=== PATIENT | male | born 1965 | race Two or more races ===

== ENCOUNTER 2024-05-17 15:44 | Emergency (ER) | payer BC, OTHER ==
[~2024-05-17] VITALS: Ht 167.6 cm; Wt 67.8 kg
[2024-05-17] MEDS: IOHEXOL 300 MG/ML 100ML BOTTLE IJ ONE (16:39)
[2024-05-17 17:13] LABS: Basophils # (auto) 0 10 ^3/uL (0-0.2); Basophils % (auto) 0.3 % (0.0-2.0); Eosinophils # (auto) 0.1 10 ^3/uL (0-0.8); Eosinophils % (auto) 1.1 % (0.0-7.0); Hematocrit 40.6 % (41.0-53.0); Hemoglobin 13.8 g/dL (13.5-17.5); Lymphocytes # (auto) 1.2 10 ^3/uL (0.4-5.4); Lymphocytes % (auto) 22.7 % (10.0-50.0); Mean Corpuscular Hemoglobin 30.6 pg (28.0-32.0); Monocytes # (auto) 0.3 10 ^3/uL (0-1.3); Neutrophils # (auto) 3.8 10 ^3/uL (1.6-8.6); Neutrophils % (auto) 69.9 % (37.0-80.0); Nucleated Red Blood Cells % 0.1 %; Red Blood Cells 4.51 10^6/uL (4.5-5.90); Red Cell Distribution Width 13.1 % (11.8-14.3); White Blood Cell 5.4 10^3/uL (4.4-10.8)
[2024-05-17 17:28] LABS: Alanine Aminotransferase 24 U/L (7-40); Albumin 3.9 g/dL (3.2-4.8); Alkaline Phosphatase 83 U/L (46-116); Anion Gap 6 (5-15); Aspartate Aminotransferase 8 U/L (13-40); BUN/Creatinine Ratio 16.3 (10.0-20.0); Bilirubin, Total 0.8 mg/dL (0.2-1.0); Blood Urea Nitrogen 15 mg/dL (9-23); Calcium 8.9 mg/dL (8.5-10.1); Carbon Dioxide 25 mmol/L (20-30); Chloride 106 mmol/L (98-107); Glucose 211 mg/dL (74-106); Potassium 4.1 mmol/L (3.5-5.1); Sodium 137 mmol/L (136-145); Total Protein 6.2 g/dL (5.7-8.2)
[2024-05-17 17:29] LABS: INR 1.03 (0.9-1.15); Partial Thromboplastin Time 24.9 SEC (24.5-34.5); Prothrombin Time 10.9 sec (9.3-11.8)
[2024-05-17] MEDS ORDERED: NAP500T PO (17:42)
[2024-05-17] MEDS ORDERED: CYCL-611 PO (17:42)
[2024-05-17] MEDS: KETOROLAC TROMETH 30 MG/ML 1ML VIAL IV ONE (17:57)
[2024-05-17 18:10] VITALS: BP 130/76; PULSE 66; RESP 17; TEMP 98.3; O2SAT 96
== END 2024-05-17 18:18 | disposition home or self-care (01) ==
LOC: ER 15:44
DX: S20.219A Contusion of unspecified front wall of thorax, initial encounter (principal); W14.XXXA Fall from tree, initial encounter; Y93.89 Activity, other specified; Y92.89 Other specified places as the place of occurrence of the external cause; Y99.8 Other external cause status
CPT/HCPCS: 36415; 70450; 71045; 71260; 72125; 74177; 80053; 85025; 85610; 85730; 93005; 96374; 99285; J1885; Q9967

== ENCOUNTER 2024-08-02 13:54 | Emergency (ER) | payer BC ==
[~2024-08-02] VITALS: Ht 167.6 cm; Wt 68.2 kg
[~2024-08-02 13:54] MED LIST: CYCL-611 PO; NAP500T PO
[2024-08-02 14:44] LABS: Basophils # (auto) 0 10 ^3/uL (0-0.2); Basophils % (auto) 0.5 % (0.0-2.0); Eosinophils # (auto) 0.1 10 ^3/uL (0-0.8); Eosinophils % (auto) 1.7 % (0.0-7.0); Hematocrit 42.5 % (41.0-53.0); Hemoglobin 14.8 g/dL (13.5-17.5); Lymphocytes # (auto) 1.4 10 ^3/uL (0.4-5.4); Lymphocytes % (auto) 30.8 % (10.0-50.0); Mean Corpuscular Hemoglobin 31.3 pg (28.0-32.0); Mean Corpuscular Hgb Conc. 34.7 g/dL (32.0-36.0); Mean Corpuscular Volume 90.1 fL (80.0-100.0); Monocytes # (auto) 0.4 10 ^3/uL (0-1.3); Monocytes % (auto) 7.6 % (0.0-12.0); Neutrophils # (auto) 2.8 10 ^3/uL (1.6-8.6); Neutrophils % (auto) 59.4 % (37.0-80.0); Nucleated Red Blood Cells % 0.2 %; Platelet Count (auto) 247 10^3/uL (140-450); Red Blood Cells 4.72 10^6/uL (4.5-5.90); Red Cell Distribution Width 13.1 % (11.8-14.3); White Blood Cell 4.7 10^3/uL (4.4-10.8)
[2024-08-02 14:53] LABS: Alanine Aminotransferase 24 U/L (7-40); Albumin 4.1 g/dL (3.2-4.8); Alkaline Phosphatase 100 U/L (46-116); Anion Gap 7 (5-15); Aspartate Aminotransferase < 8 U/L (13-40); BUN/Creatinine Ratio 19.2 (10.0-20.0); Bilirubin, Total 0.6 mg/dL (0.2-1.0); Blood Urea Nitrogen 15 mg/dL (9-23); Calcium 9.4 mg/dL (8.7-10.4); Carbon Dioxide 24 mmol/L (20-30); Chloride 106 mmol/L (98-107); Glucose 271 mg/dL (74-106); Magnesium 1.8 mg/dL (1.6-2.6); Potassium 4.2 mmol/L (3.5-5.1); Sodium 137 mmol/L (136-145); Total Protein 6.3 g/dL (5.7-8.2)
[2024-08-02] MEDS: ASPirin 81 mg TAB PO ONE (15:02)
[2024-08-02] MEDS: predniSONE 20 MG TAB PO ONE (15:02)
[2024-08-02] MEDS: ACYCLOVIR 400 MG TAB PO ONE (15:30)
[2024-08-02 16:22] VITALS: BP 140/77; TEMP 98.1
[2024-08-02 16:23] VITALS: PULSE 62; RESP 15; O2SAT 98
[2024-08-02] MEDS ORDERED: VALA500T33 PO (16:36)
[2024-08-02] MEDS ORDERED: PRED20TA2 PO (16:36)
== END 2024-08-02 16:51 | disposition home or self-care (01) ==
LOC: ER 13:54
DX: G51.0 Bell's palsy (principal); E11.9 Type 2 diabetes mellitus without complications
CPT/HCPCS: 36415; 70450; 80053; 82962; 83735; 84484; 85025; 99285; J7512